=== PATIENT | female | born 1985 | race American Indian/Alaskan Native ===

== ENCOUNTER 2024-09-20 17:55 | Emergency (ER) | payer MEDICAID, SELFPAY ==
[2024-09-20 17:56] VITALS: BMI 52.1
--- NOTE | 2024-09-20 18:13 | EKG_ITS ---
[facility] Test Date: 2024-09-20 Pat Name: MELODIE PLUMMER Department: Room: - Gender: Female Cook Box Filler: : 1985 Requested By: Serafin Turner Order Number: [id number] Reading MD: Serafin Turner Measurements Intervals Mathews Rate: 78 P: 0 SD: 153 QRS: -30 QRSD: 102 T: 41 QT: 345 QTc: 394 Interpretive Statements SINUS RHYTHM BORDERLINE LEFT AXIS DEVIATION [QRS AXIS < -20] No previous ECG available for comparison /store/S0/[id number]
[2024-09-20 18:34] VITALS: BP 183/92; PULSE 79; RESP 20; TEMP 36.7; O2SAT 100
--- NOTE | 2024-09-20 18:54 | EDNOTE_ITS ---
ED General RME/HPI General Chief complaint: General Adult/Misc Complain Stated complaint: SENT BY PMD FOR REPEAT LAB, HIGH K+ Time Seen by Provider: 09/20/24 18:51 Arrival date/time: 09/20/24 17:55 39F with history of DM presents to ED for evaluation after labs from yesterday from clinic showed K of 6.2 and HgB of 7.5. Patient denies heavy vaginal bleeding, black/red BM, and bloody emesis. Patient has no complaints. Limitations: no limitations Related Data Previous Rx's ?Medication ?Instructions ?Recorded clindamycin HCl 300 mg capsule 300 mg PO QID #40 caps 05/15/17 Allergies Allergy/AdvReac Type Severity Reaction Status Date / Time No Known Allergies Allergy Verified 09/20/24 17:58 Review of Systems Review of Systems Systems Reviewed: All systems reviewed, normal except as documented Constitutional Constitutional: Reports system reviewed and no additional complaints, except as documented, Denies fever(s) and Denies headache(s) ENT Ears, Nose, Mouth, and Throat: Denies disequilibrium and Denies headache(s) Cardiovascular Cardiovascular: Reports system reviewed and no additional complaints, except as documented, Denies chest pain and Denies dyspnea Respiratory Respiratory: Reports system reviewed and no additional complaints, except as documented, Denies cough and Denies dyspnea Gastrointestinal Gastrointestinal: Reports system reviewed and no additional complaints, except as documented, Denies abdominal pain, Denies nausea and Denies vomiting Neurologic Neurologic: Reports system reviewed and no additional complaints, except as documented, Denies confusion, Denies disequilibrium and Denies headache(s) Psychiatric Psychiatric: Denies confusion Past Medical History Social History SMOKING STATUS: Never smoker ED Exam General Limitations: Present no limitations General appearance: Present alert and in no apparent distress Head Head exam: Present atraumatic Eye Eye exam: Present normal appearance, PERRL and EOMI ENT ENT exam: Present normal exam, normal oropharynx and mucous membranes moist Neck Neck exam: Present normal inspection, full ROM and trachea midline Chest Chest inspection: Present normal inspection and symmetric chest wall rise Respiratory Respiratory exam: Present normal lung sounds bilaterally Cardiovascular Cardiovascular exam: Present regular rate, normal rhythm and normal heart sounds Abdominal Exam Abdominal exam: Present soft and normal bowel sounds Extremities Exam Extremities exam: Present normal inspection and full ROM Back Exam Back exam: Present normal inspection and full ROM Neurological Exam Neurological exam: Present alert, oriented X3 and CN II-XII intact Psychiatric Psychiatric exam: Present normal affect and normal mood Skin Skin exam: Present warm, dry, intact and normal color Course Course Course Narrative: 39F with history of DM presents to ED for evaluation after labs from yesterday from clinic showed K of 6.2 and HgB of 7.5. Patient denies heavy vaginal bleeding, black/red BM, and bloody emesis. Patient has no complaints. Physical exam reveals well-appearing female. Normal WOB. Patient is afebrile, calm, and alert. EKG is NSR with no peaked T-waves. HgB 7.9. K decreased to 5.6. Cr 2.6. Bicarb 17. VBG pH minimally low. Beta hydroxy normal. UA proteins. Spoke to Dr. Marc, nephro, who agrees likely due to CKD. She states no further intervention needed and patient can follow-up with her outpatient. Quality Measures none Orders Category Date Time Status EKG (ED ONLY) *Do not use* NOW Care 09/20/24 18:14 Completed Insert IV NOW Care 09/20/24 19:37 Completed EKG (ED Only) Stat Exams 09/20/24 18:13 Draft Alcohol, Blood Medical Stat Lab 09/20/24 19:49 Completed Beta Hydroxybutyrate Stat Lab 09/20/24 19:49 Completed CBC Stat Lab 09/20/24 19:00 Completed CMP [Comprehensive Metabolic Panel] Stat Lab 09/20/24 19:00 Completed Drug Screen,Urine Stat Lab 09/20/24 20:22 Completed HCG Qualitative,Urine Stat Lab 09/20/24 20:22 Completed Lactate (Lactic Acid) Stat Lab 09/20/24 19:54 Completed Type and Screen Stat Lab 09/20/24 19:00 Completed Urinalysis Stat Lab 09/20/24 20:22 Completed VBG [Venous Blood Gas] Stat Lab 09/20/24 19:54 Completed Sodium Chloride 0.9% 1000 ml [Ns] 1,000 ml Med 09/20/24 19:37 Discontinued IV 999 mls/hr Vital Signs Vital signs: Vital Signs Temperature 98.0 F 09/20/24 18:34 Pulse Rate 79 09/20/24 18:34 Respiratory Rate 20 09/20/24 18:34 Blood Pressure 183/92 H 09/20/24 18:34 Pulse Oximetry (%) 100 09/20/24 18:34 Oxygen Delivery Method Room Air 09/20/24 18:34 O2 at 100% on RA and WNLs MDM Patient data External records reviewed:: [facility] previous records Clinical information provided by:: patient Social determinants that could affect healthcare access:: none Patient has the following chronic illnesses:: DM How is presenting disease/condition affected by chronic disease/condition?: e xacerbated by Evaluation data The following diagnostics were reviewed and interpreted by me:: lab results Lab and/or radiology exams considered but not ordered:: ordered Interpretation Summary: above Medications Medications considered but not ordered:: ordered Medication administrations:: Medication Administration History Discontinued Medications Sodium Chloride (Ns) 1,000 mls @ 999 mls/hr IV .Q1H1M ONE Stop: 09/20/24 20:37 above Consultations Consultation(s) initiated? (list below): Yes Diagnosis Differential Diagnosis ED Complaint MDM: hyperkalemia, DKA, anemia, health screening, lab repeat, elevated creatinin Most likely diagnosis given after review of the tests above:: elevated creatinine Admission Indicated Admission indicated?: not indicated Explain why admission is indicated or not indicated:: outpatient Admission Request Was there a request for admission?: No Disposition Plan Disposition Plan: Discharge Discharge Attestation Discharge Attestation: The patient and all family members were given an opportunity to ask questions and understood the discharge instructions. Discharge instructions specifically effects, indications for sooner follow up or return to the emergency department, and the expected course of current diagnosis. Patient condition: Stable Medical Decision Making Differential Diagnosis Differential Diagnosis: hyperkalemia, DKA, anemia, health screening, lab repeat, elevated creatinin Lab Data 09/20/24 19:00 09/20/24 19:00 Labs: Lab Results 09/20/24 09/20/24 09/20/24 Range/Units 19:00 19:49 19:54 WBC 11.8 H (3.6-11.0) Thou/mm3 RBC 3.29 L (4.00-5.20) Miln/mm3 Hgb 7.9 L (12.0-16.0) g/dL Hct 25.4 L (36.0-46.0) % MCV 77 L (80-100) fL MCH 24.0 L (25.0-35.0) pg MCHC 31.1 (31.0-37.0) g/dl RDW Std Deviation 46.3 (36.4-46.3) fL Plt Count 397 (140-440) Thou/mm3 Neut % (Auto) 65 (37-80) % Lymph % (Auto) 23 (10-50) % Carbon % (Auto) 8 (0-12) % Eos % (Auto) 2 (0-10) % Baso % (Auto) 1 (0-2.5) % Neut # (Auto) 7.7 (1.8-7.7) Thou/mm3 Lymph # (Auto) 2.7 (1.0-4.8) Thou/mm3 Carbon # (Auto) 0.9 H (0.0-0.8) Thou/mm3 Eos # (Auto) 0.3 (0.0-0.5) Thou/mm3 Baso # (Auto) 0.1 (0.0-0.2) Thou/mm3 Immature Gran # (Auto) 0.04 H (0.00-0.00) Thou/mm3 Absolute Nucleated RBC 0.00 (0.00-0.00) Thou/mm3 Immature Gran % 0 (0-0) % Nucleated RBC % 0 (0) /100 WBC VBG pH 7.29 L (7.33-7.66) VBG pCO2 39 (36-56) mmHg VBG pO2 27 (15-58) mmHg VBG O2 Sat (Mei) 46 L (96-97) % VBG Base Excess -8 L (-3-3) Sodium 135 L (136-145) mMol/L Potassium 5.6 H (3.4-5.1) mMol/L Chloride 110 H (98-107) mMol/L Carbon Dioxide 16.9 L (20.0-31.0) mMol/L Anion Gap 8 (7-16) BUN 39 H (9-23) mg/dL Creatinine 2.6 H (0.6-1.3) mg/dL Estim Creat Clear Calc 45.7 L (>60) mL/min eGFR 23 L (60 - ) See Note BUN/Creatinine Ratio 15 (12-20) Ratio Glucose 98 (74-106) mg/dL Calculated Osmolality 279 (275-295) Lactic Acid 0.6 (0.4-2.0) mMol/L Calcium 8.9 (8.3-10.6) mg/dL Corrected Calcium 9.1 (8.5-10.1) mg/dL Total Bilirubin 0.2 L (0.3-1.2) mg/dL AST 12 (0-34) U/L ALT 7 L (10-49) U/L Alkaline Phosphatase 84 (46-116) U/L Total Protein 7.3 (5.7-8.2) gm/dL Albumin 3.8 (3.5-5.0) gm/dL Globulin 3.5 (2.3-3.5) gm/dL Albumin/Globulin Ratio 1.1 L (1.2-2.2) Beta-Hydroxybutyrate/Acetoacetate 0.2 (<0.6) mmol/L Ur Collection Type Urine Color (Lt Yel-Yel) Urine Clarity (Clear/Hazy) Urine pH (5.0-7.0) Ur Specific [place] (1.001-1.035) Urine Protein (Neg - Trace) Urine Glucose (UA) (Negative) Urine Ketones (Negative) Urine Blood (Negative) Urine Nitrite (Negative) Urine Bilirubin (Negative) Urine Urobilinogen (Auto) (0.0-1.0) mg/dL Ur Leukocyte Esterase (Negative) Urine RBC (0-3) /hpf Urine WBC (0-5) /hpf Ur Squamous Epith Cells (0-5) /hpf Urine Bacteria (None) Urine HCG, Qual Urine Opiates Screen (Negative) Urine Fentanyl Screen (Negative) Ur Barbiturates Screen (Negative) U Amphetamin/Meth Scrn (Negative) U Benzodiazepines Scrn (Negative) U Cocaine Metab Screen (Negative) U Marijuana (THC) Screen (Negative) Ethyl Alcohol < 3.0 (0-10.0) mg/dL Blood Type A Positive Antibody Screen NEGATIVE Blood Bank Wristband ID Yes 09/20/24 Range/Units 20:22 WBC (3.6-11.0) Thou/mm3 RBC (4.00-5.20) Miln/mm3 Hgb (12.0-16.0) g/dL Hct (36.0-46.0) % MCV (80-100) fL MCH (25.0-35.0) pg MCHC (31.0-37.0) g/dl RDW Std Deviation (36.4-46.3) fL Plt Count (140-440) Thou/mm3 Neut % (Auto) (37-80) % Lymph % (Auto) (10-50) % Carbon % (Auto) (0-12) % Eos % (Auto) (0-10) % Baso % (Auto) (0-2.5) % Neut # (Auto) (1.8-7.7) Thou/mm3 Lymph # (Auto) (1.0-4.8) Thou/mm3 Carbon # (Auto) (0.0-0.8) Thou/mm3 Eos # (Auto) (0.0-0.5) Thou/mm3 Baso # (Auto) (0.0-0.2) Thou/mm3 Immature Gran # (Auto) (0.00-0.00) Thou/mm3 Absolute Nucleated RBC (0.00-0.00) Thou/mm3 Immature Gran % (0-0) % Nucleated RBC % (0) /100 WBC VBG pH (7.33-7.66) VBG pCO2 (36-56) mmHg VBG pO2 (15-58) mmHg VBG O2 Sat (Mei) (96-97) % VBG Base Excess (-3-3) Sodium (136-145) mMol/L Potassium (3.4-5.1) mMol/L Chloride (98-107) mMol/L Carbon Dioxide (20.0-31.0) mMol/L Anion Gap (7-16) BUN (9-23) mg/dL Creatinine (0.6-1.3) mg/dL Estim Creat Clear Calc (>60) mL/min eGFR (60 - ) See Note BUN/Creatinine Ratio (12-20) Ratio Glucose (74-106) mg/dL Calculated Osmolality (275-295) Lactic Acid (0.4-2.0) mMol/L Calcium (8.3-10.6) mg/dL Corrected Calcium (8.5-10.1) mg/dL Total Bilirubin (0.3-1.2) mg/dL AST (0-34) U/L ALT (10-49) U/L Alkaline Phosphatase (46-116) U/L Total Protein (5.7-8.2) gm/dL Albumin (3.5-5.0) gm/dL Globulin (2.3-3.5) gm/dL Albumin/Globulin Ratio (1.2-2.2) Beta-Hydroxybutyrate/Acetoacetate (<0.6) mmol/L Ur Collection Type Clean Catch Urine Color Colorless A (Lt Yel-Yel) Urine Clarity Clear (Clear/Hazy) Urine pH 6.5 (5.0-7.0) Ur Specific [place] 1.006 (1.001-1.035) Urine Protein 3+ A (Neg - Trace) Urine Glucose (UA) 1+ A (Negative) Urine Ketones Negative (Negative) Urine Blood 1+ A (Negative) Urine Nitrite Negative (Negative) Urine Bilirubin Negative (Negative) Urine Urobilinogen (Auto) Negative (0.0-1.0) mg/dL Ur Leukocyte Esterase Negative (Negative) Urine RBC < 1 (0-3) /hpf Urine WBC 0 (0-5) /hpf Ur Squamous Epith Cells 2 (0-5) /hpf Urine Bacteria 1+ A (None) Urine HCG, Qual Negative Urine Opiates Screen Negative (Negative) Urine Fentanyl Screen Negative (Negative) Ur Barbiturates Screen Negative (Negative) U Amphetamin/Meth Scrn Negative (Negative) U Benzodiazepines Scrn Negative (Negative) U Cocaine Metab Screen Negative (Negative) U Marijuana (THC) Screen Negative (Negative) Ethyl Alcohol (0-10.0) mg/dL Blood Type Antibody Screen Blood Bank Wristband ID Discharge Plan Plan Patient Disposition: HOME (Self Care) Disposition Comment: Stable Prescriptions/Referrals Prescriptions/Med Rec: No Action clindamycin HCl 300 MG capsule 300 mg PO QID Qty: 40 0RF Referrals: Dominique Tellez PA-C [Primary Care Provider] - In 1 week Aurora Marc MD [Physician] - In 1 week (Call her office tomorrow to schedule appt. ) Problem List Clinical Impression: Elevated serum creatinine Patient/Caregiver Discharge Instructions Additional Instructions: Please follow-up with PCP within 24-48 hours and return immediately if symptoms worsen. Call Dr. Marc's office tomorrow to schedule an appointment. May need to get referral from PCP first depending your insurance. Print Language: Dutch Stand Alone Forms: Patient Portal Info Letter SVEN/GEN Supervising Physician OPAL Supervising Physician: Dr. Isabel
[2024-09-20 19:19] LABS: Basophils # (Auto) 0.1 Thou/mm3 (0.0-0.2); Basophils % (Auto) 1 % (0-2.5); Eosinophils # (Auto) 0.3 Thou/mm3 (0.0-0.5); Eosinophils % (Auto) 2 % (0-10); Hematocrit 25.4 % (36.0-46.0); Immature Granulocytes % (Auto) 0 % (0-0); Immature Granulocytes Auto 0.04 Thou/mm3 (0.00-0.00); Lymphocytes # (Auto) 2.7 Thou/mm3 (1.0-4.8); Lymphocytes % (Auto) 23 % (10-50); Mean Corpuscular HGB Conc 31.1 g/dl (31.0-37.0); Mean Corpuscular Volume 77 fL (80-100); Monocytes # (Auto) 0.9 Thou/mm3 (0.0-0.8); Monocytes % (Auto) 8 % (0-12); Neutrophils # (Auto) 7.7 Thou/mm3 (1.8-7.7); Neutrophils % (Auto) 65 % (37-80); Nucleated Red Blood Cell % 0 /100 WBC (0); Platelet Count 397 Thou/mm3 (140-440); RDW Standard Deviation 46.3 fL (36.4-46.3); Red Blood Count 3.29 Miln/mm3 (4.00-5.20); White Blood Count 11.8 Thou/mm3 (3.6-11.0)
[2024-09-20 19:20] LABS: Hemoglobin 7.9 g/dL (12.0-16.0)
[2024-09-20 19:31] LABS: Alanine Aminotransferase 7 U/L (10-49); Albumin, Serum 3.8 gm/dL (3.5-5.0); Albumin/Globulin Ratio 1.1 (1.2-2.2); Alkaline Phosphatase 84 U/L (46-116); Anion Gap 8 (7-16); Aspartate Amino Transferase 12 U/L (0-34); BUN/Creatinine Ratio 15 Ratio (12-20); Bilirubin,Total 0.2 mg/dL (0.3-1.2); Blood Urea Nitrogen 39 mg/dL (9-23); Calcium 8.9 mg/dL (8.3-10.6); Calcium (Corrected) 9.1 mg/dL (8.5-10.1); Carbon Dioxide 16.9 mMol/L (20.0-31.0); Chloride 110 mMol/L (98-107); Creatinine (Component) 2.6 mg/dL (0.6-1.3); Estimated Creatinine Clearance 45.7 mL/min (>60); Globulin 3.5 gm/dL (2.3-3.5); Glucose 98 mg/dL (74-106); Osmolality,Calculated 279 (275-295); Potassium 5.6 mMol/L (3.4-5.1); Sodium 135 mMol/L (136-145); Total Protein 7.3 gm/dL (5.7-8.2); eGFR 23 See Note
[2024-09-20 19:57] LABS: Base Excess, Venous -8 (-3-3); O2 Saturation, Venous 46 % (96-97); PCO2, Venous 39 mmHg (36-56); PO2, Venous 27 mmHg (15-58); pH, Venous 7.29 (7.33-7.66)
[2024-09-20 20:17] LABS: Lactate (Lactic Acid) 0.6 mMol/L (0.4-2.0)
[2024-09-20 20:37] LABS: Collection Type, Urine Clean Catch; WBC,Urine 0 /hpf (0-5)
[2024-09-20 20:44] LABS: Beta Hydroxybutyrate 0.2 mmol/L (<0.6)
[2024-09-20 20:58] LABS: Bacteria,Urine 1+; Bilirubin,Urine Negative (Negative); Blood,Urine 1+ (Negative); Clarity,Urine Clear (Clear/Hazy); Color,Urine Colorless (Lt Yel-Yel); Glucose, Urine 1+ (Negative); Ketones,Urine Negative (Negative); Leukocyte Esterase,Urine Negative (Negative); Nitrite,Urine Negative (Negative); PH,Urine 6.5 (5.0-7.0); Protein,Urine 3+ (Neg - Trace); RBC,Urine < 1 /hpf (0-3); Specific Gravity,Urine 1.006 (1.001-1.035); Squamous Epithelial Cell,Urine 2 /hpf (0-5); Urobilinogen,Urine Negative mg/dL (0.0-1.0)
[2024-09-20 20:59] LABS: HCG Qualitative,Urine Negative
[2024-09-20 21:04] LABS: Alcohol, Blood Medical < 3.0 mg/dL (0-10.0)
[2024-09-20 23:23] LABS: Amphetamine/Methamp Scrn,U Negative (Negative); Barbiturate Screen,Urine Negative (Negative); Benzodiazepines Screen,Urine Negative (Negative); Benzoylecgonine Screen, Ur Negative (Negative); Fentanyl Screen,Urine Negative (Negative); Opiate Screen,Urine Negative (Negative); THC Screen,Urine Negative (Negative)
== END 2024-09-20 21:15 | disposition home or self-care (01) ==
PROVIDERS: Physician Assistant; Emergency Provider Emergency Medicine; PCP Physician Assistant
DX: R79.89 Other specified abnormal findings of blood chemistry (principal); E11.9 Type 2 diabetes mellitus without complications
CPT/HCPCS: 36415; 80053; 80307; 80320; 81001; 81025; 82010; 82803; 83605; 85025; 86850; 86900; 86901; 93005; 99283; G0480

== ENCOUNTER → 2024-10-23 | Outpatient (CLI) | payer MEDICAID, SELFPAY ==
--- NOTE | 2024-10-23 10:24 | XR_ITS ---
Examination: Retroperitoneal ultrasound, complete Technique: Multiple high resolution grayscale images of the retroperitoneum obtained, including kidneys and bladder. Exam date and time:October 23, 2024 1052 hours INDICATIONS: Running kidney disease diagnosis on laboratory examination September 20, 2024 FINDINGS: Right kidney 12.6 cm renal cortex 2.0 cm Left kidney 13.6 cm cortex 2.2 cm Mild left hydronephrosis Moderate bilateral renal parenchymal scar formation No bladder mass or bladder calculi Bladder prevoid volume 426 cc IMPRESSION: Mild left hydronephrosis Moderate bilateral renal parenchymal scar formation
== END | disposition home or self-care (01) ==
LOC: CDIM 10:14
PROVIDERS: Referring Provider Internal Medicine Nephrology; Visit Provider Internal Medicine Nephrology
DX: N13.30 Unspecified hydronephrosis (principal); N28.89 Other specified disorders of kidney and ureter
CPT/HCPCS: 76770

== ENCOUNTER 2025-02-06 05:30 | Day surgery (SDC) | payer MEDICAID, SELFPAY ==
--- NOTE | 2025-01-26 14:58 | ESHP_ITS ---
RE: MELODIE PLUMMER : 1985 DATE OF ADMISSION: 02/06/2025 DATE OF SURGERY: 02/07/2024 HISTORY OF PRESENT ILLNESS: This is a 39-year-old 2, para 2 with cervical dysplasia who presents for LEEP cone biopsy of the cervix. ALLERGIES: NO KNOWN DRUG ALLERGIES. MEDICATIONS: 1. Farxiga 10 mg 1 p.o. daily. 2. Basaglar insulin. 3. Furosemide 40 mg 1 p.o. daily. 4. Losartan 50 mg 1 p.o. daily. ALLERGIES: NO KNOWN DRUG ALLERGIES. PAST MEDICAL HISTORY: Renal insufficiency, type 2 diabetes mellitus, chronic hypertension, cervical dysplasia, seasonal allergies. FAMILY HISTORY: Breast cancer, hypertension, diabetes, hypothyroidism, obesity. PAST SURGICAL HISTORY: delivery. REVIEW OF SYSTEMS: She denies any chest pain, palpitations, cough, fever, shortness of breath or lower extremity pain. PHYSICAL EXAMINATION: VITAL SIGNS: Blood pressure 186/94, heart rate 65, respirations 18, temperature is 98.6, weight 328 pounds. HEENT: Oropharynx and sclerae are clear. LUNGS: Clear to auscultation bilaterally. HEART: Regular rate and rhythm. ABDOMEN: Old Pfannenstiel scar noted. EXTREMITIES: Nontender. SKIN: No gross rashes or lesions. NEUROLOGIC: No focal deficit. ASSESSMENT: Cervical dysplasia. PLAN: LEEP cone biopsy of the cervix. Informed consent was obtained. The patient was made aware of the risks, complications, alternatives, and benefits of the proposed procedure and she agrees. DT: 12:28:45 TT: 14:56:00 Ref: [id number] - TID: [id number]
[2025-02-05 07:03] VITALS: BMI 50.5
[2025-02-05 08:27] LABS: Basophils # (Auto) 0.1 Thou/mm3 (0.0-0.2); Basophils % (Auto) 1 % (0-2.5); Eosinophils # (Auto) 0.2 Thou/mm3 (0.0-0.5); Eosinophils % (Auto) 2 % (0-10); Hematocrit 29.6 % (36.0-46.0); Hemoglobin 9.5 g/dL (12.0-16.0); Immature Granulocytes Auto 0.02 Thou/mm3 (0.00-0.00); Lymphocytes # (Auto) 2.0 Thou/mm3 (1.0-4.8); Lymphocytes % (Auto) 22 % (10-50); Mean Corpuscular HGB Conc 32.1 g/dl (31.0-37.0); Mean Corpuscular Hemoglobin 26.9 pg (25.0-35.0); Mean Corpuscular Volume 84 fL (80-100); Monocytes # (Auto) 0.6 Thou/mm3 (0.0-0.8); Monocytes % (Auto) 7 % (0-12); Neutrophils # (Auto) 6.2 Thou/mm3 (1.8-7.7); Neutrophils % (Auto) 68 % (37-80); Nucleated Red Blood Cell # 0.00 Thou/mm3 (0.00-0.00); Nucleated Red Blood Cell % 0 /100 WBC (0); Platelet Count 342 Thou/mm3 (140-440); RDW Standard Deviation 46.1 fL (36.4-46.3); Red Blood Count 3.53 Miln/mm3 (4.00-5.20); White Blood Count 9.1 Thou/mm3 (3.6-11.0)
[2025-02-05 08:38] LABS: Alanine Aminotransferase < 7 U/L (10-49); Albumin, Serum 3.6 gm/dL (3.5-5.0); Albumin/Globulin Ratio 1.0 (1.2-2.2); Alkaline Phosphatase 75 U/L (46-116); Anion Gap 10 (7-16); Aspartate Amino Transferase 12 U/L (0-34); BUN/Creatinine Ratio 10 Ratio (12-20); Beta HCG,Quantitative < 1 mIU/mL (<5.0); Bilirubin,Total 0.3 mg/dL (0.3-1.2); Blood Urea Nitrogen 29 mg/dL (9-23); Calcium 8.5 mg/dL (8.3-10.6); Calcium (Corrected) 8.8 mg/dL (8.5-10.1); Carbon Dioxide 22.5 mMol/L (20.0-31.0); Chloride 106 mMol/L (98-107); Creatinine (Component) 2.8 mg/dL (0.6-1.3); Estimated Creatinine Clearance 40.3 mL/min (>60); Globulin 3.6 gm/dL (2.3-3.5); Glucose 125 mg/dL (74-106); Osmolality,Calculated 282 (275-295); Potassium 4.1 mMol/L (3.4-5.1); Sodium 138 mMol/L (136-145); Total Protein 7.2 gm/dL (5.7-8.2); eGFR 21 See Note
[2025-02-05 09:40] LABS: INR 0.9 (0.9-1.3); Partial Thromboplastin Time 26.2 Seconds (22.0-36.0); Prothrombin Time 10.2 Seconds (9.0-12.2)
[2025-02-06] VITALS (7 sets, daily range): BP systolic 145–161; BP diastolic 74–91; PULSE 64–77; RESP 12–19; TEMP 36.1–36.4; O2SAT 94–100; BMI 50.5
--- NOTE | 2025-02-06 08:08 | SUR.PHASEI ---
pt received from OR in recovery bay 1. pt obtunded, breathing unlabored on oxymask 10l, lma in place. v/s stable. pt dressing peripad cdi. report received from Juan Alberto BARRIENTOS and Clement HARDING.
--- NOTE | 2025-02-06 08:08 | PD.GYNPROC ---
Operative Note - MANAGER REIMBURSEMENT Procedure Date of procedure: 02/06/25 Procedure Performed: LEEP cone biopsy cervix Indication: High-grade squamous intraepithelial lesion Pap smear Pre-Op diagnosis: High-grade squamous intraepithelial lesion Pap smear Post-Op diagnosis: High-grade squamous intraepithelial lesion Pap smear Anesthesia type: General Procedure description: After proper informed consent was obtained and the patient was made aware of the risks, complications, alternatives and benefits of the proposed procedure she was taken to the operating room where she underwent induction of general anesthesia.? She is placed in the dorsal lithotomy position.? A red rubber catheter was placed and the bladder drained the bladder vault contents.? She was prepped and draped in usual sterile fashion.? A timeout was performed.? A bivalve insulated speculum was placed in the vagina.? The cervix was painted with Lugol's solution.? the cervix was circumferentially injected with a 10 cc solution of dilute vasopressin (20 units and 100 cc of injectable saline).? Using the 2.0 x 2.0 cm loop electrode the squamocolumnar junction was excised and the specimen inked at 12:00.? A 1.0 x 1.0 loop electrode was utilized to obtain a Top-Hat specimen of the Endo cervix.? Using a Kevorkian curette the endocervical canal was curetted and specimen placed on Telfa.? All 3 specimens sent to pathology. ?Hemostasis was achieved with the Bovie cautery and application of a Monsel solution.? All instruments were removed from the vagina.? Counts were correct.? She was reversed from general anesthesia in the supine position.? She was transferred to the recovery room in stable condition.? I discussed with the patient's the nature of her condition, the intraoperative findings, the expectation for recovery, all questions answered. Specimen: other (1. LEEP cone specimen inked at 12 oclock 2. Top Hat specimen 3. Endocervical currettings. ) Estimated blood loss (ml): 3 Findings: Grossly normal-appearing cervix Complications: none Surgical staff Jose A Jackman CRNA Operation Date: 02/06/25 07:30 <No data on this case meets the specified criteria> Diagnosis Discharge Diagnosis (1) HGSIL (high grade squamous intraepithelial lesion) on Pap smear of cervix: Status: Acute (2) S/P LEEP (loop electrosurgical excision procedure): Status: Acute Problem List Completed Was Problem List Reviewed/Reconciled?: Yes
--- NOTE | 2025-02-06 08:27 | SUR.PHASEI ---
pt able to tolerate oral fluids without difficulty swallowing or nausea/vomiting.
[2025-02-06] MEDS: ACETAMINOPHEN IVPB 1,000 MG/100 ML VIAL 250 MG IV (08:32)
--- NOTE | 2025-02-06 09:05 | SUR.PHASEII ---
pt awake and alert, breathing unlabored on room air. v/s stable. pt dressing peripad cdi. pt able to ambulate to wheelchair with steady gait. d/c instructions given with s/o Jh in room, all questions answered. pt d/c via wheelchair with all belongings.
== END 2025-02-06 09:05 | disposition home or self-care (01) ==
PROVIDERS: Referring Provider Specialist; Visit Provider Specialist
PROC: 0UBC7ZZ Excision of Cervix, Via Natural or Artificial Opening (ICD-10-PCS; CPT 57522; principal; 2025-02-06 07:30)
DX: N87.1 Moderate cervical dysplasia (principal)
CPT/HCPCS: 57522; 36415; 80053; 84702; 85025; 85610; 85730; 86850; 86900; 86901; A4217; A4649; J0131; J0690; J1100; J2250; J2598; J2704; J2765; J3010; J3490; A9270; J1596